=== PATIENT | female | born 1960 | race Caucasian/White ===

== ENCOUNTER → 2016-05-25 | Outpatient (CLI) | payer BC | LOC: KOH-I 16:24 | DX: E04.1 Nontoxic single thyroid nodule (principal); E04.9 Nontoxic goiter, unspecified | CPT/HCPCS: 76536 ==

== ENCOUNTER → 2016-08-10 | Outpatient (CLI) | payer OTHER, BC ==
[2016-08-10 13:24] LABS: HEMOGLOBIN 13.2 gm/dl (12.3-15.3); RED BLOOD COUNT 4.14 M/UL (4.00-5.10); WHITE BLOOD COUNT 6.2 K/UL (4.5-11.0)
== END ==
LOC: LAB 12:42
DX: M19.90 Unspecified osteoarthritis, unspecified site (principal); E55.9 Vitamin D deficiency, unspecified
CPT/HCPCS: 36415; 85025; 86140

== ENCOUNTER → 2016-09-08 | Outpatient (CLI) | payer OTHER, BC | LOC: LAB 12:38 | DX: E55.9 Vitamin D deficiency, unspecified (principal) | CPT/HCPCS: 36415 ==

== ENCOUNTER → 2020-05-22 | Outpatient (CLI) | payer BC ==
[~2020-05-22] MED LIST: BUPROPION XL150 MG PO; COLACE 100MG C100 MG PO; IBUPROFEN600 MG PO; KLONOPIN TAB 00.5 MG PO; MELATONIN10 M2 PO; MULTI VIT PO; PERCOCET 5/325 T1 EA PO; THERAGRAN M TAB1 EA PO; WELLBUTRIN PO
== END ==
LOC: EXRD 13:27
DX: M25.551 Pain in right hip (principal); M54.5 Low back pain; M51.36 Other intervertebral disc degeneration, lumbar region
CPT/HCPCS: 72100; 73502

== ENCOUNTER → 2020-06-06 | Outpatient (CLI) | payer BC | LOC: KOH-I 05-30 13:30 | DX: E04.2 Nontoxic multinodular goiter (principal) | CPT/HCPCS: 76536 ==

== ENCOUNTER → 2020-06-30 | Outpatient (CLI) | payer BC | LOC: KOH-I 06-23 08:00 | DX: N20.0 Calculus of kidney (principal); K80.20 Calculus of gallbladder without cholecystitis without obstruction; K57.30 Diverticulosis of large intestine without perforation or abscess without bleeding; M51.36 Other intervertebral disc degeneration, lumbar region; M51.37 Other intervertebral disc degeneration, lumbosacral region | CPT/HCPCS: 74176 ==